=== PATIENT | male | born 1995 | race African-American/Black ===

== ENCOUNTER 2022-01-21 16:00 | Emergency (ER) | payer MEDICAID ==
[~2022-01-21] VITALS: Ht 167.6 cm; Wt 60.0 kg
[2022-01-21 16:35] VITALS: BP 115/64
== END 2022-01-21 19:30 | disposition left against medical advice (07) ==
LOC: ER 16:00
DX: Z53.21 Procedure and treatment not carried out due to patient leaving prior to being seen by health care provider (principal)